=== PATIENT | female | born 1975 | race Caucasian/White ===

== ENCOUNTER 2017-09-20 13:04 | Emergency (ER) | END 2017-09-20 16:03 | disposition home or self-care (01) ==

== ENCOUNTER 2018-10-29 22:51 | Emergency (ER) | payer MEDICAID ==
[~2018-10-29] VITALS: Ht 160 cm; Wt 69.2 kg
[~2018-10-29 22:51] MED LIST: CIPR-193 PO; IBUP-1542 PO
[2018-10-29 22:54] VITALS: Ht 160 cm; Wt 69.2 kg
--- NOTE | 2018-10-29 23:08 | ERD ---
ER Documentation Chief Complaint Chief Complaint abdominal pain HPI The patient is a 43-year-old female, presenting to the ER because of lower abdominal pain intermittently for the last 4 weeks, worse tonight, with constipation. She denies similar symptoms previously, denies fever, chills, come complains of nausea but no vomiting, denies dysuria. 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 Medications Home Meds Active Scripts Ibuprofen* (Motrin*) 600 Mg Tab, 600 MG PO Q6H PRN for PAIN, #20 TAB Prov:GILLES RAMACHANDRAN MD 10/30/18 Discontinued Reported Medications [None] No Conflict Check 07/14/10 Discontinued Scripts Ibuprofen* (Motrin*) 600 Mg Tab, 600 MG PO Q8 for 5 Days, #15 TAB Prov:JESI SY MD 09/20/17 Ciprofloxacin Hcl* (Ciprofloxacin Hcl*) 250 Mg Tablet, 250 MG PO BID for 5 Days, #10 TAB Prov:JESI SY MD 09/20/17 Allergies Allergies: Coded Allergies: No Known Allergies (Unverified Allergy, Mild, 10/30/18) PMhx/Soc History of Surgery: Yes (L breast CA ) Anesthesia Reaction: No Hx Neurological Disorder: No Hx Respiratory Disorders: No Hx Cardiac Disorders: No Hx Psychiatric Problems: No Hx Miscellaneous Medical Probl: No Hx Alcohol Use: No Hx Substance Use: No Hx Tobacco Use: Yes (20yr history; quit 3 wks ago) Physical Exam Vitals Vital Signs Date Temp Pulse Resp B/P (MAP) Pulse Ox O2 O2 Flow FiO2 Time Delivery Rate 10/30/18 78 16 104/76 98 Room Air 02:18 (85) 10/30/18 72 16 105/74 100 Room Air 01:05 (84) 10/29/18 98.6 95 18 141/89 100 22:54 (106) Physical Exam Const: No acute distress. Head: Atraumatic. Eyes: Normal Conjunctiva. ENT: Normal External Ears, Nose and Mouth. Neck: Full range of motion. No meningismus. Resp: Clear to auscultation bilaterally. Cardio: Regular rate and rhythm. Abd: Soft, non distended, normal bowel sounds, diffuse abdominal tenderness, no rigidity/rebound/CVA tenderness. Mild right pelvic tenderness Skin: No petechiae or rashes. Back: No midline or flank tenderness. Ext: No cyanosis, or edema. Neur: Awake and alert. No focal deficit Psych: Normal Mood and Affect. Result Diagram: 10/29/18 2336 10/29/18 2336 Results 24 hrs Laboratory Tests Test 10/29/18 23:24 10/29/18 23:29 10/29/18 23:36 Bedside Urine pH (LAB) 6.5 Bedside Urine Protein (LAB) Negative Bedside Urine Glucose (UA) Negative Bedside Urine Ketones (LAB) Negative Bedside Urine Blood Negative Bedside Urine Nitrite (LAB) Negative Bedside Urine Leukocyte Esterase (L Negative POC Beta HCG, Qualitative NEGATIVE White Blood Count 9.2 10^3/ul Red Blood Count 4.59 10^6/ul Hemoglobin 14.0 g/dl Hematocrit 41.0 % Mean Corpuscular Volume 89.3 fl Mean Corpuscular Hemoglobin 30.5 pg Mean Corpuscular Hemoglobin Concent 34.1 g/dl Red Cell Distribution Width 12.4 % Platelet Count 348 10^3/UL Mean Platelet Volume 9.5 fl Immature Granulocytes % 0.300 % Neutrophils % 52.9 % Lymphocytes % 37.3 % Monocytes % 7.8 % Eosinophils % 1.4 % Basophils % 0.3 % Nucleated Red Blood Cells % 0.0 /100WBC Immature Granulocytes # 0.030 10^3/ul Neutrophils # 4.9 10^3/ul Lymphocytes # 3.5 10^3/ul Monocytes # 0.7 10^3/ul Eosinophils # 0.1 10^3/ul Basophils # 0.0 10^3/ul Nucleated Red Blood Cells # 0.0 10^3/ul Sodium Level 141 mmol/L Potassium Level 3.6 mmol/L Chloride Level 103 mmol/L Carbon Dioxide Level 26 mmol/L Anion Gap 12 Blood Urea Nitrogen 13 mg/dl Creatinine 0.77 mg/dl Est Glomerular Filtrat Rate mL/min > 60 mL/min Glucose Level 106 mg/dl Calcium Level 9.3 mg/dl Total Bilirubin 0.3 mg/dl Direct Bilirubin 0.00 mg/dl Indirect Bilirubin 0.3 mg/dl Aspartate Amino Transf (AST/SGOT) 17 IU/L Alanine Aminotransferase (ALT/SGPT) 16 IU/L Alkaline Phosphatase 95 IU/L Total Protein 7.7 g/dl Albumin 4.3 g/dl Globulin 3.40 g/dl Albumin/Globulin Ratio 1.26 Lipase 180 U/L Current Medications Medications Dose Sig/Theron Start Time Status Last (Trade) Ordered Route PRN Stop Time Admin Dose Reason Admin Morphine 2 mg ONCE STAT 10/29/18 DC 10/29/18 Sulfate IV 23:26 10/29/18 23:44 (morphine) 23:28 Ondansetron 4 mg ONCE STAT 10/29/18 DC 10/29/18 HCl (Zofran IV 23:26 10/29/18 23:44 Inj) 23:28 Procedures/[place] [id number] Radiology Main Line: [phone] DIAGNOSTIC IMAGING REPORT Patient: LUIS ALBERTO LONG : 12/31/1973 Age: 44 Sex: F MR #: [id number] DOS: 10/29/18 2326 Ordering MD: GILLES RAMACHANDRAN MD Location: E/R Room/Bed: PROCEDURE: CT Abdomen and Pelvis without contrast. CLINICAL INDICATION: Abdominal pain. TECHNIQUE: CT scan of the abdomen and pelvis was performed on a multi-detector high-resolution CT scanner. The patient was scanned without contrast administration. Coronal and sagittal reformatted images were obtained from the axial source images. Images were reviewed on a high-resolution PACS workstation. The total exam CTDI equals 11 mGy and the total exam DLP equals 625 mGy-cm. DICOM images are available. 3-D reconstructions were not performed. One or more of the following dose reduction techniques were utilized: 1.) Automated exposure control 2.) Adjustment of the mA +/- kV according to patient's size 3.) Use of iterative reconstruction technique. COMPARISON: 03/24/2014 FINDINGS: CT abdomen: Chest wall: Bilateral breast implants. Heart (where visible): Unremarkable. Lung bases: No evidence of pneumonia, mass, pleural effusion. Liver: Normal attenuation. No visible focal mass. Biliary ductal system: No evidence of significant dilatation. Gallbladder: Surgically absent. Pancreas: Unremarkable. Stomach: No identifiable focal mass or gross wall thickening. There is a large volume of food in the stomach. Spleen: No gross splenomegaly. Abdominal colon: Normal in caliber and course. Abdominal small bowel: Normal in caliber, course, and mucosal pattern. Adrenal glands: No visible masses. Right Kidney: Normal in size and contour without focal mass or collecting system dilatation. No visible calcifications. Left kidney: Normal in size and contour without focal mass or collecting system dilatation. No visible calcifications. Abdominal aorta: Normal caliber. Lymph nodes: No significantly enlarged nodes. CT pelvis: Pelvic colon: Normal in caliber and course. No evidence of inflammatory change. Pelvic small bowel: Normal in caliber and course. Appendix: Not identified. No evidence of inflammation. Urinary bladder: Normal in size and contour without visible wall thickening. Reproductive structures: The uterus and adnexa appear unremarkable. There is no free fluid in the pelvis. Bony structures included in the scan: No clinically significant abnormalities. IMPRESSION: 1. Surgical absence of the gallbladder. 2. Otherwise unremarkable CT of the abdomen and pelvis with no evidence of bowel obstruction, bowel perforation, urinary tract stone, urinary tract obstruction, or focal inflammatory process. RPTAT:AAJJ Physician Basilio Date Time Electronically viewed and signed by Physician Basilio on 10/30/2018 01:30 GW/ CC: GILLES RAMACHANDRAN MD [id number] ?5d Patient Name [facility], Study Date 10/29/2018 11:37 PM Luis Alberto Patient 12/31/1973 Accession No. [id number] Referring Physician Gilles Ramachandran (Joss) Patient Location E/R CLINICAL INDICATION: Pelvic pain. TECHNIQUE: Multiple sonographic images of the pelvis were obtained utilizing a transabdominal and endovaginal technique. The images were reviewed on a PACS workstation. COMPARISON: None. FINDINGS: Transabdominal images: The urinary bladder is empty resulting in very poor sonographic windows into the pelvis. The uterus is not visible. No adnexal masses are grossly evident. There does not appear to be any large volume of free fluid in the pelvis. Transvaginal imaging: The uterus measures 7.6 x 4.3 x 5.1 cm. The myometrium appears unremarkable. There are small Nabothian cysts in the cervix. The endometrium appears unremarkable with a thickness of 10 mm. The right ovary appears normal and measures 3.6 x 2.4 x 2.0 cm. The ovary contains a 2.2 dominant follicle. The left ovary is not visualized Blood flow is evident in the right ovary. There is no significant free fluid in the pelvis. IMPRESSION: 1. Sonographically unremarkable uterus. 2. Sonographically unremarkable right ovary. 3. Nonvisualization of the left ovary without evidence of left adnexal mass. RPTAT:AAJJ Electronically Signed By: Adam Wren M.d 10/30/2018 1:37:01 AM MEDICAL MAKING DECISION: The patient is a 44-year-old female, presenting with acute abdominal pain of unclear etiology, was treated with morphine 2 mg IV for pain, Zofran 4 mg IV for nausea with good response, is stable for outpatient follow-up The differential diagnoses considered include but are not limited to cholelithiasis, cholecystitis, choledocholithiasis, cholangitis, pancreatitis, hepatitis, gastritis, peptic ulcer disease, gastric ulcer, appendicitis, cystitis, diverticulitis, partial small bowel obstruction. Departure Diagnosis: Primary Impression: Abdominal pain Condition: Good Comments She was discharged with Motrin The patient's blood pressure was elevated (>120/80) but appears stable without evidence of hypertension emergency or urgency. The patient was counseled about the risks of hypertension and urged to pursue outpatient monitoring and therapy within a week with their primary care physician. I discussed the findings with the patient. I advised the patient to follow-up with the primary physician in about 2-3 days, sooner if needed and return if any concern. Disclaimer: Inadvertent spelling and grammatical errors are likely due to EHR/dictation software use and do not reflect on the overall quality of patient care. Also, please note that the electronic time recorded on this note does not necessarily reflect the actual time of the patient encounter. GILLES RAMACHANDRAN MD Oct 29, 2018 23:08
[2018-10-29] MEDS ORDERED: ONDANSETRON 4 MG INJ IV STA (23:26)
[2018-10-29] MEDS ORDERED: morphine 2 MG INJ IV STA (23:26)
[2018-10-30] MEDS ORDERED: IBUP-1542 PO (02:05)
[2018-10-30 02:18] VITALS: BP 104/76; PULSE 78; RESP 16
== END 2018-10-30 02:18 | disposition home or self-care (01) ==
LOC: E/R 22:51
DX: R10.9 Unspecified abdominal pain (principal); R10.2 Pelvic and perineal pain; Z85.3 Personal history of malignant neoplasm of breast; Z87.891 Personal history of nicotine dependence
CPT/HCPCS: 36415; 74176; 76830; 76856; 80053; 81003; 81025; 83690; 85025; 96374; 96375; J2270; J2405; Z7502